=== PATIENT | female | born 1990 | race Hispanic/Latino ===

== ENCOUNTER 2020-05-25 19:17 | Outpatient (RCR) | payer OTHER, SELFPAY ==
[2020-05-25 20:11] VITALS: BP 139/74; PULSE 110
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
== END 2020-08-23 23:59 | disposition home or self-care (01) ==
LOC: ANHOBOP 19:17
PROVIDERS: Visit Provider Student in an Organized Health Care Education/Training Program
DX: O36.8120 Decreased fetal movements, second trimester, not applicable or unspecified (principal); Z3A.26 26 weeks gestation of pregnancy
CPT/HCPCS: 59025

== ENCOUNTER 2022-06-23 04:46 | Emergency (ER) | payer OTHER, SELFPAY ==
[2022-06-23 04:56] VITALS: BP 115/97; PULSE 103; RESP 18; TEMP 36.6; O2SAT 99
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
[2022-06-23 05:21] LABS: Appearance Urine Clear (Clear); Bilirubin Urine 1+ (Negative); Blood Urine Negative (Negative); Color Urine Yellow (Yellow); Glucose Urine UA Negative (Negative); Ketones Urine Trace mg/dL (Negative); Leukocyte Esterase Ur Negative LEU/UL (Negative); Nitrate Urine Negative (Negative); Protein Urine 1+ mg/dL (Negative); Specific Grav Ur >= 1.030 (1.001-1.035); Urobilinogen Urine 0.2 mg/dL (<2.0); pH Urine 5.5 (5.0-9.0)
[2022-06-23 05:33] LABS: Bacteria Urine Trace /hpf; Mucus Urine Moderate /lpf; Squamous Epithelial Cell Urine Many /hpf (Few)
[2022-06-23 05:36] LABS: Barbiturate Screen Urine Negative (Negative); Benzodiazepines Screen Urine Negative (Negative)
[2022-06-23 05:37] LABS: Add Urine Microscopic? YES
[2022-06-23 05:40] LABS: Cannabinoid Screen Urine Negative (Negative); Cocaine Screen Urine Negative (Negative); Methadone Screen Urine Negative (Negative); Opiate Screen Urine Negative (Negative)
[2022-06-23 05:47] LABS: Phencyclidine Screen Urine Negative (Negative)
[2022-06-23 06:02] LABS: Amphetamine Screen Urine Positive (Negative)
== END 2022-06-23 05:56 | disposition left against medical advice (07) ==
PROVIDERS: Emergency Provider Emergency Medicine
DX: F15.10 Other stimulant abuse, uncomplicated (principal)
CPT/HCPCS: 80307; 81001; 81025; 99283

== ENCOUNTER 2022-08-21 14:17 | Emergency (ER) | payer OTHER, SELFPAY ==
[2022-08-21 14:43] VITALS: BP 133/89; PULSE 92; RESP 16; TEMP 37.2; O2SAT 100
--- NOTE | 2022-08-21 15:02 | ED.FEMALEGU ---
HPI - Female Genitourinary General Chief complaint: Urogenital-Female Stated complaint: std testing Source: patient Mode of arrival: ambulatory Limitations: no limitations History of Present Illness HPI Narrative: 32-year-old female presents to [facility] with complaints of burning with urination after intercourse and dark and foul smelling odor with urination for the past month. Patient reports that she is concerned about an STD As she is concerned that her boyfriend cheated on her approximately 1 month ago. patient denies abdominal pain, flank pain, nausea, vomiting or diarrhea MD elicited complaint: dysuria Onset (ago): month(s) (1) Vaginal discharge: none Vaginal bleeding: none Associated symptoms: denies other symptoms Sexual activity: Yes Related Data Allergies Allergy/AdvReac Type Severity Reaction Status Date / Time No Known Drug Allergies Allergy Mild Unknown Verified 08/21/22 14:39 nickel AdvReac Rash Verified 08/21/22 14:39 Review of Systems Constitutional: Constitutional: Denies chills and Denies fatigue ENT: Denies vertigo and Denies dizziness Cardiovascular: Cardiovascular: Denies chest pain Respiratory: Respiratory: Denies cough, Denies dyspnea and Denies wheezing Gastrointestinal: Gastrointestinal: Denies diarrhea, Denies nausea and Denies vomiting Genitourinary: Genitourinary: Denies hematuria, Denies nocturia, Denies genital lesions, Denies pelvic pain, Denies flank pain, Denies urinary incontinence and Denies vaginal discharge Comments: pain with urination, dark and odorous urine, pain after intercourse PMFSH Social History Social History Gender identity (if verbalized by the patient): Female Comments At time of signature, I agree with nursing past medical, surgical, social and family history. There is no relevant family history pertinent to the presenting complaint. Exam Const: General: healthy appearing and no acute distress Nutritional Appearance: well nourished Orientation/consciousness: patient oriented x3 Limitations: no limitations and No altered mental status Neck: Neck: normal visual inspection Resp: Effort & Inspection: normal respiratory effort and not labored Auscultation: clear to auscultation bilaterally, no crackles and no rales Cardio: Rate: regular rate Rhythm: regular rhythm Heart sounds: no murmurs GI: GI Palp: Yes Soft to palpation, No Tenderness to palpation present (GI), No Guarding due to palpation present (GI) and No Rigid due to palpation : General: Yes bladder normal to palpation, No Bladder palpation abnormal and Yes no CVA tenderness Back/Spine/Pelvis: Back: no CVA tenderness Skin: General skin exam: normal color Rashes: no rashes Wounds: no wounds Neuro: General: patient oriented x3 Speech: normal speech Psych: Affect: normal affect Attitude: cooperative Course Course Level of Care: Express Care Visit Vital Signs Vital signs: Vital Signs Temperature 37.2 C 08/21/22 14:43 Pulse Rate 92 08/21/22 14:43 Respiratory Rate 16 08/21/22 14:43 Blood Pressure 133/89 08/21/22 14:43 Pulse Oximetry 100 08/21/22 14:43 Oxygen Delivery Room Air 08/21/22 14:43 Temperature 37.2 C 08/21/22 14:43 Pulse Rate 92 08/21/22 14:43 Respiratory Rate 16 08/21/22 14:43 Blood Pressure 133/89 08/21/22 14:43 Pulse Oximetry 100 08/21/22 14:43 Oxygen Delivery Room Air 08/21/22 14:43 MDM - Female Genitourinary MDM Narrative Medical decision making narrative: patient requesting that she is treated today for Chlamydia and gonorrhea. She understands that we will call her with lab results. 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 patient understands and recommend that she abstain from intercourse pending STD results. Instructed patient to proceed to the emergency room symptoms worsen Differential Diagnosis Differential diagnosis:
[2022-08-21] MEDS: cefTRIAXone 500 MG VIAL IM (15:19)
[2022-08-21] MEDS: LIDOCAINE HCL 1% LOCAL INJ 2 ML AMPUL 1.8 ML INFILTRATE (15:19)
--- NOTE | 2022-10-04 08:45 | PC.NURSE ---
Certified letter returned - insufficient address, unable to forward.
== END 2022-08-21 15:39 | disposition home or self-care (01) ==
PROVIDERS: Emergency Provider Nurse Practitioner Family
DX: R30.0 Dysuria (principal); Z72.51 High risk heterosexual behavior
CPT/HCPCS: 81003; 81025; 87077; 87086; 87088; 87491; 87591; 87661; 96372; 99214; G0463; J0696

== ENCOUNTER 2022-10-07 07:29 | Emergency (ER) | payer OTHER, SELFPAY ==
[2022-10-07 07:38] VITALS: BP 144/84; PULSE 88; RESP 18; TEMP 37.2; O2SAT 100
--- NOTE | 2022-10-07 08:09 | PC.NURSE ---
Pt. tired of waiting for doctor. Pt. left without being seen
== END 2022-10-07 08:11 | disposition left against medical advice (07) ==
PROVIDERS: Emergency Provider Emergency Medicine
DX: Z53.21 Procedure and treatment not carried out due to patient leaving prior to being seen by health care provider (principal)
CPT/HCPCS: 99199

== ENCOUNTER 2022-11-04 14:42 | Emergency (ER) | payer OTHER, SELFPAY ==
[2022-11-04 14:45] VITALS: BP 148/103; PULSE 52; RESP 16; TEMP 36.4; O2SAT 100
[2022-11-04 15:04] LABS: Basophils Absolute Auto 0.1 K/mm3 (0.0-0.1); Basophils Percent Auto 0.7 % (0.2-1.2); Eosinophils Absolute Auto 0.2 K/mm3 (0-0.3); Eosinophils Percent Auto 1.7 % (0-4.4); Hematocrit 41.3 % (37.0-47.0); Hemoglobin 14.1 g/dL (12.0-15.0); Immature Granulocyte Absolute 0.06 K/mm3 (0.00-0.031); Immature Granulocyte Percent A 0.4 % (0-0.5); Lymphocytes Absolute Auto 2.94 K/mm3 (0.9-3.2); Lymphocytes Percent Auto 21.4 % (18.3-44.2); Mean Corpuscular HGB Conc 34.1 g/dl (32-36); Mean Corpuscular Hemoglobin 31.6 pg (26-34); Mean Corpuscular Volume 92.6 fl (80-100); Mean Platelet Volume 10.7 fl (7.4-10.4); Monocytes Absolute Auto 0.8 K/mm3 (0.1-0.6); Monocytes Percent Auto 5.8 % (2.6-8.5); Neutrophils Absolute Auto 9.6 K/mm3 (1.3-6.7); Platelet Count Result 360 k/mm3 (150-375); Red Blood Count 4.46 M/mm3 (4.2-5.4); Red Cell Distribution Width 12.6 % (11.5-14.5); White Blood Count 13.7 K/mm3 (4.5-10.0)
[2022-11-04 15:15] LABS: Alanine Aminotransferase 19 U/L (6-35); Albumin Level 4.4 g/dL (3.5-5.1); Alkaline Phosphatase 90 U/L (38-126); Anion Gap 12 mmol/L (8-16); Aspartate Amino Transferase 19 U/L (14-36); Bilirubin,Total 0.7 mg/dL (0.2-1.3); Blood Urea Nitrogen 10 mg/dL (7-17); Calcium 8.8 mg/dL (8.4-10.2); Carbon Dioxide 20 mmol/L (22-30); Chloride 108 mmol/L (98-107); Estimated Glomerular Filt Rate > 60; Ethanol 204 mg/dL (<10); Glucose 131 mg/dL (65-110); Potassium 3.9 mmol/L (3.4-5.0); Sodium 140 mmol/L (137-145)
[2022-11-04 15:40] LABS: SARS-CoV-2 RNA PCR Negative
[2022-11-04 15:45] LABS: Thyroid Stimulating Hormone 0.693 uIU/mL (0.465-4.680)
--- NOTE | 2022-11-04 16:23 | PC.NURSE ---
Patient is currently lying on stretcher with eyes closed. Respirations regular and non-labored. Skin pink and dry. Appears to be asleep. education rep remains present at the bedside.
[2022-11-04 16:41] LABS: Amorphous Sediment Urine Present; Appearance Urine Turbid (Clear); Bacteria Urine 3+ /hpf; Bilirubin Urine Negative (Negative); Blood Urine Negative (Negative); Color Urine Yellow (Yellow); Glucose Urine UA Negative (Negative); Ketones Urine Negative (Negative); Leukocyte Esterase Ur 1+ LEU/UL (Negative); Need Manual Microscopic Reviewed; Nitrate Urine Negative (Negative); Protein Urine 1+ mg/dL (Negative); Specific Grav Ur 1.024 (1.001-1.035); Squamous Epithelial Cell Urine Many /hpf (Few); Urobilinogen Urine 0.2 mg/dL (<2.0)
[2022-11-04 16:49] LABS: Benzodiazepines Screen Urine Negative (Negative); Cannabinoid Screen Urine Negative (Negative); Cocaine Screen Urine Negative (Negative); Methadone Screen Urine Negative (Negative); Opiate Screen Urine Negative (Negative); Phencyclidine Screen Urine Negative (Negative)
[2022-11-04 16:50] LABS: Add Urine Microscopic? YES
[2022-11-04 16:54] LABS: Barbiturate Screen Urine Negative (Negative)
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
[2022-11-04 17:16] LABS: Amphetamine Screen Urine Positive (Negative)
--- NOTE | 2022-11-04 17:32 | PC.NURSE ---
reg diet precautionary dinner tray ordered
[2022-11-04] MEDS: CEPHALEXIN 500 MG CAPSULE PO (19:16)
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
[2022-11-04 20:11] LABS: Ethanol 89 mg/dL (<10)
--- NOTE | 2022-11-04 20:15 | PC.NURSE ---
[facility] called to evaluate patient
[2022-11-04 22:37] VITALS: BP 134/98; PULSE 72; RESP 20; O2SAT 100
== END 2022-11-04 22:49 | disposition home or self-care (01) ==
PROVIDERS: Emergency Provider Emergency Medicine
DX: F15.10 Other stimulant abuse, uncomplicated (principal); F10.129 Alcohol abuse with intoxication, unspecified; N39.0 Urinary tract infection, site not specified; Y90.7 Blood alcohol level of 200-239 mg/100 ml; F32.A Depression, unspecified; Z20.822 Contact with and (suspected) exposure to COVID-19
CPT/HCPCS: 36415; 80053; 80307; 81001; 81025; 84443; 85025; 87077; 87086; 87186; 99283; A9270; U0003; U0005